=== PATIENT | female | born 1985 | race Caucasian/White ===

== ENCOUNTER → 2019-07-14 13:54 | Outpatient (CLI) | payer OTHER, SELFPAY ==
--- NOTE | 2019-07-14 | DI.US.S_ITS ---
ULTRASOUND OF LEFT BREAST: 07/14/2019 CLINICAL: Palpable left breast lump. Nipple discharge, left breast, not bloody. Comparison is made to exam dated: 07/14/2019 [facility]. Color flow and real-time ultrasound of the left breast were performed on the areas of interest. Collins scale images of the real-time examination were reviewed. There is an irregular mass in the left breast at 11 o'clock middle depth. This irregular mass is heterogeneously echogenic. This correlates with mammography and ultrasound findings. IMPRESSION: SUSPICIOUS OF MALIGNANCY The irregular mass in the left breast may represent pseudoangiomatous stromal hyperplasia, however, is at a low suspicion for malignancy. An ultrasound guided biopsy is recommended. This exam was interpreted at Station ID: [id number]. SUMMARY: This was discussed with the patient by the radiologist Dr. Saab at the time of the exam. Electronically Signed By: Yeimy persaud/:07/14/2019 16:06:30 letter sent: Biopsy Required Ultrasound BI-RADS: 4a Low suspicion for malignancy
--- NOTE | 2019-07-14 | DI.MG.S_ITS ---
BILATERAL DIGITAL DIAGNOSTIC MAMMOGRAM 3D/2D: 07/14/2019 CLINICAL: Baseline exam. Left breast lump. No prior exams were available for comparison. The tissue of both breasts is extremely dense, which lowers the sensitivity of mammography. There is a focal asymmetry in the left breast at 10 o'clock posterior depth. This likely correlates as palpated. No other significant masses, calcifications, or other findings are seen in either breast. IMPRESSION: INCOMPLETE: NEEDS ADDITIONAL IMAGING EVALUATION The focal asymmetry in the left breast is indeterminate. There is no mammographic abnormality seen in the left breast to correspond with the non-bloody discharge from the nipple. A targeted ultrasound of the left breast is recommended and will be performed immediately following this exam. This exam was interpreted at Station ID: [id number]. NOTE: For mammograms, a report in lay terms will be sent to the patient. Approximately 15% of breast malignancies will not be visualized mammographically. In the management of a palpable breast mass, a negative mammogram must not discourage biopsy of a clinically suspicious lesion. Electronically Signed By: Yeimy Perez M.D. lk/:07/14/2019 14:55:50 ACR BI-RADS Category 0: Incomplete [id number]
== END ==
PROVIDERS: Referring Provider Student in an Organized Health Care Education/Training Program; Visit Provider Student in an Organized Health Care Education/Training Program
DX: R92.8 Other abnormal and inconclusive findings on diagnostic imaging of breast (principal); N63.22 Unspecified lump in the left breast, upper inner quadrant; N64.52 Nipple discharge
CPT/HCPCS: 76642; 77066; G0279

== ENCOUNTER → 2019-07-29 12:34 | Outpatient (CLI) | payer OTHER, SELFPAY ==
--- NOTE | 2019-07-29 | DI.MG.S_ITS ---
UNILATERAL LEFT DIGITAL DIAGNOSTIC MAMMOGRAM POST-NEEDLE BIOPSY: 07/29/2019 CLINICAL: Left breast mass. Comparison is made to exam dated: 07/14/2019 [facility]. The tissue of left breast is extremely dense, which lowers the sensitivity of mammography. There is a marker clip in the appropriate position in the left breast at 12 o'clock posterior depth. This marker clip placement is at the biopsy site. IMPRESSION: POST PROCEDURE MAMMOGRAM FOR MARKER PLACEMENT There was a successful marker clip placement in the left breast posterior depth. This exam was interpreted at Station ID: [id number]. NOTE: For mammograms, a report in lay terms will be sent to the patient. Approximately 15% of breast malignancies will not be visualized mammographically. In the management of a palpable breast mass, a negative mammogram must not discourage biopsy of a clinically suspicious lesion. Electronically Signed By: Mary santamaria/sher:07/29/2019 15:13:25 ACR BI-RADS Category Post-procedure mammogram for marker placement
--- NOTE | 2019-07-29 | DI.US.S_ITS ---
ULTRASOUND GUIDED BIOPSY LEFT BREAST USING VACUUM DEVICE WITH MARKING DEVICE INSERTED AND POST DIGITAL MAMMOGRAPHIC AND ULTRASOUND IMAGIN07/29/2019 CLINICAL: Left breast biopsy. PATIENT CONSENT: Risks (minor bleeding, infection, vasovagal reaction and repeat procedure), benefits and alternatives were explained to the patient and written informed consent was obtained. Correlation is made to exams dated: 07/14/2019 ultrasound and 07/14/2019 mammogram - [facility]. An ultrasound guided biopsy using real-time ultrasound was performed for the palpable 5.2 cm indistinct oval mass located in the left breast at 11 o'clock posterior depth 6 cm from the nipple. This was described on the previous ultrasound report. The skin was prepped in the usual manner. Local anesthetic was administered to the access site. A skin michael was made in the breast. The abnormality was approached from the lateral aspect. A 10 gauge biopsy needle was placed adjacent to the abnormality under ultrasound guidance. Once the needle was documented to be in the correct location, three specimens were obtained using the Mammotome biopsy system. A Vision clip was inserted into the biopsy cavity. A skin adhesive was applied to the access site. Post procedure digital mammographic and ultrasound imaging demonstrates the location device at the targeted area. The specimens were sent to the laboratory for pathological analysis. IMPRESSION: ULTRASOUND GUIDED BIOPSY BENIGN Ultrasound guided biopsy of the 5.2 cm mass in the left breast at 11 o'clock posterior depth 6 cm from the nipple was successful with no apparent post procedure complications. Pathology indicates Breast parenchyma with dilated ducts, stromal fibrosis and focal hyalinization. Pathology results are concordant with imaging findings. Recommend clinically monitoring for significant change. Otherwise, return to screening mammograms. This exam was interpreted at Station ID: [id number]. Mary Henley M.D. [facility]/:08/04/2019 10:12:10
--- NOTE | 2019-07-29 | PATH_ITS ---
[facility] Accession Number: [id number] . 01 Material submitted: . breast - LEFT BREAST MASS . 01 Diagnosis: Left Breast Mass, Biopsy: Breast parenchyma with dilated ducts, stromal fibrosis and focal hyalinization. No evidence of calcifications or polarizable material. Negative for atypia, carcinoma in situ and malignancy. MRV 07/30/20197 Local . 01 Comment: Deeper H/E levels are examined. Clinical and radiographic correlation is necessary. . 01 Electronically signed: Bridgette Hernandez MD, Pathologist NPI- [id number] . 01 Gross description: . Received one formalin-filled container, labeled with the patient's name and designated left breast mass. The specimen is received with a plastic filter in container, sample loose in container and consists of multiple portions of yellow-lopez soft tissue which range in size from less than 0.1 cm to 0.5 x 0.3 x 0.3 cm. The specimen is filtered, wrapped, and entirely submitted in one cassette. Collection date: 07/29/19. Collection time per container: 1350, time on container hard to read. Total fixation time: Approximately 10 hours. ([id number]) /KARTHIKEYAN 07/30/2019 0215 Local . 01 Pathologist provided ICD-10: N63.20 . 01 CPT . 447287 Performed at: 01 [facility] [address] [place] [address], [place], [place] [id number] MD Kang Ryan MD Phone: [phone]
== END ==
PROVIDERS: PCP Student in an Organized Health Care Education/Training Program; Referring Provider Student in an Organized Health Care Education/Training Program
DX: N60.32 Fibrosclerosis of left breast (principal); N60.42 Mammary duct ectasia of left breast
CPT/HCPCS: 19083; 77065